=== PATIENT | male | born 1955 | race African-American/Black ===

== ENCOUNTER 2016-05-22 10:58 | Emergency (ER) | payer OTHER ==
[~2016-05-22] VITALS: Ht 185.4 cm; Wt 120.9 kg
[~2016-05-22 10:58] MED LIST: NAPROSYN-EC500 MG PO; NAPROXEN500 MG PO; TRAZODONE HCL150 MG PO
[2016-05-22] MEDS ORDERED: MOTRIN800 MG PO (11:30)
[2016-05-22] MEDS ORDERED: FLEXERIL10 MG PO (11:30)
[2016-05-22 11:37] VITALS: BP 160/98
== END 2016-05-22 11:46 | disposition home or self-care (01) ==
LOC: EME 10:58
DX: M54.32 Sciatica, left side (principal)
CPT/HCPCS: 99281; 99283; J1885

== ENCOUNTER 2016-11-02 08:02 | Emergency (ER) | payer OTHER ==
[~2016-11-02] VITALS: Ht 185.4 cm; Wt 126.9 kg
[~2016-11-02 08:02] MED LIST changes: +FLEXERIL10 MG PO; +MOTRIN800 MG PO
[2016-11-02] MEDS ORDERED: CORTISONE99 GM TP (09:00)
[2016-11-02] MEDS ORDERED: ATARAX,VISTARIL50 MG PO (09:00)
[2016-11-02] MEDS ORDERED: MEDROL DOSEPAK4 MG PO (09:00)
[2016-11-02 09:58] VITALS: BP 126/86
== END 2016-11-02 09:59 | disposition home or self-care (01) ==
LOC: EME 08:02
DX: L25.9 Unspecified contact dermatitis, unspecified cause (principal)
CPT/HCPCS: 99281; 99283